=== PATIENT | female | born 1960 | race Caucasian/White ===

== ENCOUNTER 2017-03-27 17:15 | Emergency (ER) | payer OTHER ==
[~2017-03-27] VITALS: Ht 175.3 cm; Wt 77.1 kg
[2017-03-27 17:43] VITALS: BP 149/85
[2017-03-27] MEDS: predniSONE 10 MG TABLET PO ONE (17:55)
[2017-03-27] MEDS ORDERED: PRED20TA PO (17:57)
--- NOTE | 2017-03-27 17:57 | PHYS DOC ---
Past History Past Medical History: No Pertinent History Past Surgical History: Hysterectomy Alcohol Use: None Drug Use: None Adult General Chief Complaint Chief Complaint: INSECT sting HPI HPI Patient is a 57-year-old female who presents ambulatory to the ED complaining of a bee or wasp sting to her face about 30 minutes ago. She has had swelling of her eyelids around the sting but has had no generalized swelling, no hives, no dyspnea, no swelling of the mouth or throat. She's never been allergic to stings before. She is not exactly sure what stung her. No other complaints. Review of Systems Review of Systems Constitutional: Denies fever or chills [] Eyes: As in history of present illness, denies difficulty with vision HENT: Denies nasal congestion or sore throat , denies mouth or throat swelling or difficulty swallowing Respiratory: Denies cough or shortness of breath [] Integument: Denies rash or skin lesions other than localized to the upper face Current Medications Current Medications Current Medications Medications (Trade) Dose Ordered Sig/Sabina Start Time Stop Time Status Last Admin Dose Admin Prednisone (Prednisone) 40 mg 1X ONCE 03/27/17 17:45 03/27/17 17:46 UNV Allergies Allergies Allergies Coded Allergies Type Severity Reaction Last Updated Verified sulfamethoxazole Allergy Mild hives 03/27/17 Yes trimethoprim Allergy Mild hives 03/27/17 Yes Physical Exam Physical Exam Constitutional: Well developed, well nourished, no acute distress, non-toxic appearance. Alert, mentating normally, vital signs stable, not dyspneic. HEENT: There is a red spot consistent with a insect sting located between the bridge of the nose and the left inner canthus. There is puffy edema of the upper and lower eyelids worse on the left but also present on the right, and puffy swelling between the eyes. The swelling is localized basically to a stripe across the level of the eyes. There is no redness of the eyelids. There is no chemosis or conjunctivitis of the eyes. No swelling at all below the level of the zygomatic arches. There is no swelling of the lips or tongue. Voice is normal. No dyspnea or stridor. Neck: Normal range of motion, no stridor. [] Skin: Warm, dry, no erythema, no rash. [] Extremities: No tenderness, no cyanosis, no clubbing, ROM intact, no edema. [] Neurologic: Alert and oriented X 3, normal motor function, normal sensory function, no focal deficits noted. [] Current Patient Data Vital Signs Vital Signs Date Time Temp Pulse Resp B/P (MAP) Pulse Ox O2 Delivery O2 Flow Rate FiO2 03/27/17 17:43 98.0 59 100 03/27/17 17:19 18 Room Air EKG EKG [] Radiology/Procedures Radiology/Procedures [] Course & Med Decision Making Course & Med Decision Making Pertinent Labs and Imaging studies reviewed. (See chart for details) 57-year-old female who does not have a history of bee sting allergy was stung on the face between the bridge of her nose and her left eye and had acute onset of very localized swelling. There is no evidence of systemic allergic reaction, the swelling was somewhat alarming because of the location. I believe her symptoms are from a local reaction however. Reassured. See instructions for plan. [] Dragon Disclaimer Dragon Disclaimer This chart was dictated in whole or in part using Voice Recognition software in a busy, high-work load, and often noisy Emergency Department environment. It may contain unintended and wholly unrecognized errors or omissions. Departure Departure: Impression: Primary Impression: Local reaction to bee sting Disposition: 01 HOME, SELF-CARE Condition: STABLE Referrals: TRANG GARRETT MD (PCP) Patient Instructions: Bee, Wasp, or Hornet Sting Additional Instructions: I believe the swelling is from a local reaction, not from a systemic allergic reaction to the sting. Elevate above your heart to minimize swelling. Cold compresses to the area to help with swelling and pain and itching. Antihistamines will help with the swelling and itching. Benadryl one every 6-8 hours. If it makes you to sleepy, you may take a nonsedating antihistamine during the day, such as Claritin or Zyrtec, and take Benadryl at bedtime. We will try a short course of prednisone which may help. You had your first dose here in the emergency department. Next dose is due tomorrow morning. Take it until better and then for 1 more day. Scripts Prednisone (PREDNISONE) 20 Mg Tablet 40 MG PO DAILY for bee sting for 5 Days, #10 TAB Prov: CORTNEY RESTREPO MD 03/27/17 CORTNEY RESTREPO MD Mar 27, 2017 17:57
== END 2017-03-27 18:01 | disposition home or self-care (01) ==
LOC: ER 17:15
DX: T63.441A Toxic effect of venom of bees, accidental (unintentional), initial encounter (principal); Z88.1 Allergy status to other antibiotic agents; Y92.89 Other specified places as the place of occurrence of the external cause
CPT/HCPCS: 99283; J7512

== ENCOUNTER 2018-06-08 03:59 | Emergency (ER) | payer OTHER ==
[~2018-06-08] VITALS: Ht 175.3 cm; Wt 77.1 kg
[~2018-06-08 03:59] MED LIST: PRED20TA PO
--- NOTE | 2018-06-08 04:24 | PHYS DOC ---
Past History Past Medical History: Kidney Stones Past Surgical History: Hysterectomy, Other Additional Past Surgical Histo: Kidney stone removal, Knee surgery Alcohol Use: None Drug Use: None Adult General Chief Complaint Chief Complaint: ABDOMINAL PAIN HPI HPI 58-year-old female presents with 3 day history of left lower quadrant abdominal pain with associated nausea. Patient reports the pain is sharp in nature. Reports due to pain this morning after getting up to use the restroom patient ended up "collapsing"to the floor. Denies any loss of consciousness. Patient denies any head trauma or neck pain. Patient does report sustaining an abrasion to the top of her left shoulder. Patient reports her shoulder has full range of motion and is only tender superficially at site of abrasion. Denies fever or chills. Denies prior history of similar discomfort. Patient reports pain now is minimal but had previously been significant. Review of Systems Review of Systems Constitutional: Denies fever or chills; reports malaise Eyes: Denies change in visual acuity, redness, or eye pain [] HENT: Denies nasal congestion or sore throat [] Respiratory: Denies cough or shortness of breath [] Cardiovascular: Denies chest pain or palpitations GI: Reports abdominal pain and nausea; Denies vomiting, bloody stools or diarrhea [] : Denies dysuria or hematuria [] Musculoskeletal: Denies back pain or joint pain [] Integument: Denies rash or skin lesions [] Neurologic: Denies headache, focal weakness or sensory changes [] Complete systems were reviewed and found to be within normal limits, except as documented in this note. Allergies Allergies Allergies Coded Allergies Type Severity Reaction Last Updated Verified sulfamethoxazole Allergy Mild hives 03/27/17 Yes trimethoprim Allergy Mild hives 03/27/17 Yes Physical Exam Physical Exam Constitutional: Well developed, well nourished, no acute distress, non-toxic appearance. [] HENT: Normocephalic, atraumatic, mucous membranes moist Eyes: Conjunctiva normal, no discharge. [] Neck: Normal range of motion, no tenderness, supple, no meningeal signs] Cardiovascular: Heart rate regular rhythm, no murmur [] Lungs & Thorax: Bilateral breath sounds clear to auscultation [] Abdomen: Soft, no tenderness, mild lower quadrant distention noted Skin: Warm, dry, no erythema, no rash. [] Back: No tenderness, no CVA tenderness. [] Extremities: No tenderness, ROM intact, no edema. [] Neurologic: Alert and oriented X 3, normal motor function, normal sensory function, no focal deficits noted. [] Psychologic: Affect normal, judgement normal, mood normal. [] Current Patient Data Vital Signs Vital Signs Date Time Temp Pulse Resp B/P (MAP) Pulse Ox O2 Delivery O2 Flow Rate FiO2 06/08/18 04:10 98.1 74 20 99 Room Air EKG EKG @0441: NSR at 77bpm, NO ST elevation Radiology/Procedures Radiology/Procedures [] Impressions: INDICATION: LLQ ABD PAIN, NAUSEA
HX HYSTERECTOMY
GAVE OMNI 300 75ML IV ONLY COMPARISON: May 2010 TECHNIQUE: Axial CT images obtained through the abdomen and pelvis with contrast. One or more of the following individualized dose reduction techniques were utilized for this examination: 1. Automated exposure control; 2. Adjustment of the mA and/or kV according to patient size; 3. Use of iterative reconstruction technique. FINDINGS: Abdominal aorta is not aneurysmal. No intrahepatic bile duct dilation. No peripancreatic fluid collection. Subcentimeter low-density left splenic lesion again seen and likely benign. Prominence of the left extrarenal pelvis. Urinary bladder is largely decompressed. Prominence right extrarenal pelvis. Colonic diverticulosis. Wall thickening within the sigmoid region with adjacent edema to the fat. Appendix does not appear inflamed. Small fat-containing umbilical hernia. Degenerative changes of spine. Multilevel central canal and neural foraminal stenosis. IMPRESSION: 1. Wall thickening of the sigmoid colon with adjacent edema to the fat in the region of diverticula. Most likely cause is diverticulitis but if the patient has not had a recent colonoscopy then either a follow-up CT or colonoscopy could be obtained after treatment to ensure this resolves to exclude a less common colonic mass. Electronically signed by: Kimberlee Davis MD (06/08/2018 7:13 AM) [facility] DICTATED AND SIGNED BY: KIMBERLEE DAVIS MD DATE: 06/08/18705 CC: TRANG GARRETT MD; DEANGELO MATOS DO ~ Course & Med Decision Making Course & Med Decision Making Pertinent Labs and Imaging studies reviewed. (See chart for details) Patient presents with left lower quadrant abdominal pain 3 days. Patient reports pain waxes and wanes in intensity. Also reports sharp in nature. Patient denies having similar pain. Reports has had a colonoscopy. Patient does have a history of any stones. Denies hematuria or dysuria. This offered pain and nausea medication which patient declined. IV fluid hydration therefore provided. Labs obtained and posted to chart. CT abdomen/pelvis pending. Sign out given to Dr. Ruffin for further evaluation and final disposition. Discussed current findings and plan with patient and family, who acknowledge understanding and agreement. The patient's CT scan suggests diverticulitis. It does not appear to be a severe case at this time. I will treat the patient with Flagyl and Cipro for 7 days. Patient is stable for discharge. Dragon Disclaimer Dragon Disclaimer This electronic medical record was generated, in whole or in part, using a voice recognition dictation system. Departure Departure: Impression: Primary Impression: Intermittent left lower quadrant abdominal pain Referrals: TRANG GARRETT MD (PCP) DEANGELO MATOS DO Jun 08, 2018 04:24 LORENZO RUFFIN DO Jun 08, 2018 07:47
[2018-06-08] MEDS ORDERED: IV NORMAL SALINE 1,000ML 1,000 ML IV ONE (04:30)
--- NOTE | 2018-06-08 04:46 | EKG ---
[address] [address] Test Date: 2018-06-08 Test Time: 04:41:15 Pat Name: ERMA LYLE Department: Room: Gender: F Strawhat Sizer: : [id number] Requested By: DEANGELO MATOS Order Number: [id number] Reading MD: Sy Calderon MD Measurements Intervals [place] Rate: 77 P: [place]: QRS: -16 QRSD: 76 T: 28 QT: 360 QTc: 409 Interpretive Statements SR Electronically Signed On 06-12-2018 10:56:39 CDT by Sy Calderon MD
[2018-06-08 04:47] LABS: BASO # 0.1 x10^3/uL (0.0-0.2); BASO % 0 % (0-3); EOS # 0.1 x10^3/uL (0.0-0.7); EOS % 1 % (0-3); HEMATOCRIT 40.6 % (36.0-47.0); HEMOGLOBIN 13.7 g/dL (12.0-15.5); LYMPH # 1.6 x10^3/uL (1.0-4.8); LYMPH % 13 % (24-48); MEAN CORPUSCULAR HEMOGLOBIN 33 pg (25-35); MEAN CORPUSCULAR HGB CONC 34 g/dL (31-37); MEAN CORPUSCULAR VOLUME 98 fL (79-100); MONO % 9 % (0-9); NEUT # 8.9 x10^3uL (1.8-7.7); NEUT % 77 % (31-73); PLATELET COUNT 219 x10^3/uL (140-400); RED BLOOD COUNT 4.16 x10^6/uL (3.50-5.40); RED CELL DISTRIBUTION WIDTH 12.4 % (11.5-14.5); WHITE BLOOD COUNT 11.6 x10^3/uL (4.0-11.0)
[2018-06-08 05:10] LABS: ALBUMIN 3.3 g/dL (3.4-5.0); ALBUMIN/GLOBULIN RATIO 0.9 (1.0-1.7); ALK PHOS 93 U/L (46-116); ALT (SGPT) 37 U/L (14-59); ANION GAP 7 (6-14); AST (SGOT) 34 U/L (15-37); BLOOD UREA NITROGEN 12 mg/dL (7-20); BUN/CREATININE RATIO 15 (6-20); CARBON DIOXIDE 30 mmol/L (21-32); CHLORIDE 104 mmol/L (98-107); CREATININE 0.8 mg/dL (0.6-1.0); GFR 73.2; GLUCOSE 124 mg/dL (70-99); LIPASE 171 U/L (73-393); MAGNESIUM 1.8 mg/dL (1.8-2.4); POTASSIUM 3.8 mmol/L (3.5-5.1); SODIUM 141 mmol/L (136-145); TOTAL BILIRUBIN 0.8 mg/dL (0.2-1.0)
[2018-06-08] MEDS ORDERED: CONTRAST GIVEN MC PRN (05:15)
[2018-06-08] MEDS ORDERED: IOHEXOL 300 MG/ML 75 ML VIAL. IV ONE (05:15)
[2018-06-08 05:37] LABS: BILIRUBIN,URINE NEG (NEG); CLARITY,URINE CLEAR; COLOR,URINE YELLOW; GLUCOSE,URINE NEG (NEG); NITRITE,URINE NEG (NEG); UROBILINOGEN,URINE 4 mg/dL (0.2 mg/dL)
[2018-06-08 05:38] LABS: BACTERIA,URINE 0 /HPF (0-FEW); SQUAMOUS EPITHELIAL CELL,UR OCC /LPF; WBC,URINE OCC /HPF (0-4)
--- NOTE | 2018-06-08 07:17 | RAD ---
INDICATION: LLQ ABD PAIN, NAUSEA
HX HYSTERECTOMY
GAVE OMNI 300 75ML IV ONLY COMPARISON: May 2010 TECHNIQUE: Axial CT images obtained through the abdomen and pelvis with contrast. One or more of the following individualized dose reduction techniques were utilized for this examination: 1. Automated exposure control; 2. Adjustment of the mA and/or kV according to patient size; 3. Use of iterative reconstruction technique. FINDINGS: Abdominal aorta is not aneurysmal. No intrahepatic bile duct dilation. No peripancreatic fluid collection. Subcentimeter low-density left splenic lesion again seen and likely benign. Prominence of the left extrarenal pelvis. Urinary bladder is largely decompressed. Prominence right extrarenal pelvis. Colonic diverticulosis. Wall thickening within the sigmoid region with adjacent edema to the fat. Appendix does not appear inflamed. Small fat-containing umbilical hernia. Degenerative changes of spine. Multilevel central canal and neural foraminal stenosis. IMPRESSION: 1. Wall thickening of the sigmoid colon with adjacent edema to the fat in the region of diverticula. Most likely cause is diverticulitis but if the patient has not had a recent colonoscopy then either a follow-up CT or colonoscopy could be obtained after treatment to ensure this resolves to exclude a less common colonic mass. Electronically signed by: Geremias Suarez MD (06/08/2018 7:13 AM) [facility]
[2018-06-08] MEDS ORDERED: CIPR500T PO (07:50)
[2018-06-08] MEDS ORDERED: METR500T PO (07:50)
[2018-06-08 08:10] VITALS: BP 127/91
== END 2018-06-08 08:15 | disposition home or self-care (01) ==
LOC: ER 03:59
DX: R10.32 Left lower quadrant pain (principal); R11.0 Nausea; S40.212A Abrasion of left shoulder, initial encounter; Z87.442 Personal history of urinary calculi; Z88.1 Allergy status to other antibiotic agents; Z88.2 Allergy status to sulfonamides; X58.XXXA Exposure to other specified factors, initial encounter; Y93.89 Activity, other specified; Y92.89 Other specified places as the place of occurrence of the external cause; Y99.8 Other external cause status
CPT/HCPCS: 36415; 74177; 80053; 81001; 82553; 83690; 83735; 84484; 85025; 85610; 85730; 93005; 99285; Q9967; J7030